=== PATIENT | male | born 1985 | race Hispanic/Latino ===

== ENCOUNTER 2021-04-20 23:28 | Emergency (ER) | payer SELFPAY ==
[2021-04-20] MEDS ORDERED: diphenhydrAMINE 50 MG/ML VIAL ONE (23:54)
[2021-04-20] MEDS ORDERED: Ketorolac Tromethamine 60 MG/2 ML VIAL ONE (23:54)
[2021-04-20] MEDS ORDERED: Prochlorperazine 10 MG/2 ML VIAL ONE (23:54)
== END 2021-04-21 00:23 | disposition home or self-care (01) ==
LOC: MADERS 23:28
DX: R51.9 Headache, unspecified (principal)
CPT/HCPCS: 96372; 99283; J0780; J1200; J1885